=== PATIENT | male | born 1965 | race Caucasian/White ===

== ENCOUNTER 2023-11-19 04:40 | Emergency (ER) | payer SELFPAY ==
[2023-11-19 04:42] VITALS: BP 145/86
--- NOTE | 2023-11-19 05:47 | ED.GENMED ---
History of Present Illness
General
Chief Complaint: Musculo-Skeletal Complaint
Source: patient and ambulance crew
Exam Limitations: none
Time Seen by Provider: 11/19/23 05:34
Nursing documentation reviewed up to this point in time: agreed with
Travel History
Have you had any contact with someone who has COVID-19?: No
Do you have any symptoms of coronavirus? Fever > 100 degrees, chills, cough, shortness of breath, sore throat, loss of taste or smell, muscle aches, or headache?: No
History of Present Illness
History of Present Illness:
This is a 58-year-old gentleman who resides in [place]. He has been traveling back and forth to visit his mother who resides locally. He has history of [id number] diabetes, hypertension, chronic low back pain�narcotic dependent and
follows with pain management in [place]. He also has history of osteoarthritis with previous left knee surgery in the past and more recently has been dealing with intermittent right lateral knee pain after a trip and fall early September. He has
been following with orthopedics and has a prescription for an MRI which she plans to schedule in the near future.
He does admit that his right lateral knee pain worsens with cold weather and worsens with increased activity/ambulation. He has not had a fever nor chills, he has not had swelling of his knee and no recurrent falls nor injury.
He returned to [place] yesterday via air travel and was feeling well throughout the day yesterday but right lateral knee pain returned after he attempted to get up from the dining room table last night around 7 PM.
Right lateral knee pain has persisted throughout the night, is worse with attempted ambulation, worse with movement of his right knee and improves with sitting or lying still. Right lateral knee pain occasionally radiates to his right anterolateral
thigh but he denies increase in his lower back pain and right lateral knee pain is worse with direct palpation of his lateral knee.
He has no history of inflammatory arthropathy such as gout or pseudogout.
He is chronically maintained on oxycodone 15 mg which he takes every 4-6 hours as needed for pain.
Past History
Past History
ED Past Medical History: CAD, HTN, Hypercholesterolemia, IDDM (Patient is now insulin requiring diabetes, maintained on Lantus 15 units at bedtime (11/2023)), NIDDM, AR and Other (Lumbar DJD, chronic low back pain, narcotic dependent)
ED Past Surgical History: Cardiac (PTCA with stent x2 2002, PTCA with stent x 1 in May 2023) and Orthopedic (Lumbar fusion 2013; left knee surgery)
Social History
Tobacco: Non-smoker
Alcohol: Occasional
Personal:
Living: alone (Resides in [place])
Employment: Retired
Family History
Family History: Other (Noncontributory)
Phy Exam
Physical Exam
Physical Exam:
GENERAL: 58-year-old gentleman appears his stated age, awake and alert, pleasant, appears in no acute distress. Easily communicative. Vital signs within normal limits.
EYE: anicteric
NECK: Supple, nontender, no meningismus, no significant adenopathy.
ENT: oral mucosa is moist. No rhinorrhea.
CARDIAC: Regular rate and rhythm. no murmur.
LUNGS: Clear breath sounds bilaterally, no acute respiratory distress, no wheezes/rales/rhonchi
ABDOMEN: Soft, nondistended, without focal tenderness, normoactive BS.
NEUROLOGICAL: Alert and oriented x3, no focal neuro deficits.
SKIN: Warm and dry, normal color, skin intact. No rash.
MUSCULOSKELETAL: No C/C/E. peripheral pulses are full and equal b/l. There is no calf tenderness nor peripheral edema. Right knee has no joint effusion or soft tissue swelling. There is moderate pinpoint tenderness right lateral knee along the
lateral collateral ligament. There is no erythema, no soft tissue swelling, no ecchymosis. Mildly restricted range of motion of right knee related to pain. There is no crepitus. No laxity. No tenderness to the thigh nor lower leg.
PSYCH: Normal and appropriate interaction.
Course
Orders/Labs/Results
Orders:
Orders
11/19/23 05:46
Ketorolac [Toradol] 60 mg IM NOW STA
11/19/23 05:58
Knee Immobilizer Right-Treatme ONCE
11/19/23 06:39
Bedside Glucose- Treatment ONCE
Abnormal Lab Results
11/19/23
06:45
POC Glucose 134 H mg/dl
(70-99)
Vital Signs
Initial and Last Documented VS:
Initial Vital Signs
Temp Pulse Resp BP Pulse Ox
98.0 F 71 16 145/86 97
11/19/23 04:42 11/19/23 04:42 11/19/23 04:42 11/19/23 04:42 11/19/23 04:42
Last Documented Vital Signs
Temp Pulse Resp BP Pulse Ox
98.0 F 71 16 132/83 97
11/19/23 04:42 11/19/23 04:42 11/19/23 04:42 11/19/23 06:00 11/19/23 04:42
MDM/Problems Addressed
Differential Diagnosis Includes:
Patient presents with acute on chronic right lateral knee pain.
Exam remarkable for moderate pinpoint tenderness right lateral knee over lateral collateral ligament.
There is no joint effusion, no soft tissue swelling nor erythema, nothing to suggest inflammatory arthropathy.
He denies recent injury nor fall thus x-ray is not indicated.
Although reports frequent air travel to and from [place] he has had no calf tenderness, no peripheral edema, nothing on exam to suggest DVT and pinpoint lateral knee pain is not consistent with thromboembolism.
He does have history of chronic pain, chronically maintained on opioid medication thus additional narcotics are to be avoided.
Will give a one-time dose of Toradol here to assist with pain control and will plan for knee immobilizer.
He is currently maintained on dual antiplatelet agents, low-dose aspirin as well as Effient therefore ongoing NSAID use is not advisable.
He also has history of insulin requiring diabetes; we could consider short course of prednisone for anti-inflammatory effect but would caution that prednisone will temporarily raise blood sugar.
Ultimately patient will require follow-up with his relocation services specialist in [place]. At this point there is no indication for urgent/emergent MRI of his knee.
Chronic conditions affecting care: DM, CAD and Other (Chronic pain syndrome, narcotic dependent)
*Pulse Oximetry
Patient hypoxic: no
*Critical Care Note
Total Time (30-74mins, 75-104mins- exclusive of procedures): Not Applicable
Update Note
Update Note:
Patient feeling improved after IM dose of Toradol.
Right knee has been placed in a knee immobilizer and he has successfully ambulated to and from the bathroom with steady unaided gait.
Accu-Chek 134.
Will discharge to home with short course of daily prednisone.
Recommend he use the knee immobilizer for comfort may also trial topical lidocaine patch versus topical NSAID gel.
Prompt follow-up with PCP and orthopedist upon returning home to [place].
ED Attending Note
-
Portions of this chart may have been created with voice recognition software.� Occasional wrong word or��sound alike� substitutions may have occurred due to the inherent limitations of voice recognition software.
Discharge Plan
Departure
Patient Disposition: Home (Routine Discharge)
Date of Disposition: 11/19/23
Time of Disposition: 06:47
Patient with high blood pressure during this ER visit?: No
Condition: Good
Discharge Problem:
acute exacerbation of chronic R knee amparo, lat collateral ligament strain R knee
Instructions: Knee Immobilizer (DC), Knee Sprain (DC)
Prescriptions:
New
prednisone 20 mg tablet
40 mg PO DAILY Qty: 10 0RF
No Action
Gabapentin
600 mg PO QID
Lipitor
40 mg PO DAILY
Metoprolol
25 mg PO DAILY
Ramipril
10 mg PO DAILY
aspirin [Ecotrin Low Strength] 81 mg Tablet,Delayed Release (Dr/Ec)
81 mg PO DAILY
sildenafil 100 mg Tablet
100 mg PO DAILY PRN (Reason: ED)
Janumet 50-1,000 mg Tablet
1 tab PO BID
prasugrel 10 mg Tablet
10 mg PO DAILY
dapagliflozin propanediol [Farxiga] 10 mg Tablet
10 mg PO DAILY
oxycodone 15 mg Tablet
15 mg PO Q4-6M PRN (Reason: pain)
Referrals:
PRIVATE,PHYSICIAN [Family Provider] -
Interventions
Interventions:
*Risk Screen - Suicide Last Done: 11/19/23 04:42
*General Assessment Last Done: 11/19/23 04:42
*Neglect/Abuse Screening Last Done: 11/19/23 04:42
ED- Fall Risk Assessment Last Done: 11/19/23 04:42
*ED COVID-19 Vaccine History Last Done: 11/19/23 04:42
ED-Musculoskeletal Assessment Last Done: 11/19/23 05:06
[2023-11-19] MEDS: TORADOL 60 MG IM (05:51)
[2023-11-19 06:00] VITALS: BP 132/83
[2023-11-19 06:46] LABS: Glucose - Point of Care 134 mg/dl (70-99)
== END 2023-11-19 07:05 | disposition home or self-care (01) ==
LOC: EMR 04:40
PROVIDERS: EMERGENCY PHYSICIAN Emergency Medicine
DX: M70.861 Other soft tissue disorders related to use, overuse and pressure, right lower leg (principal); M25.561 Pain in right knee; G89.4 Chronic pain syndrome; I10 Essential (primary) hypertension; I25.10 Atherosclerotic heart disease of native coronary artery without angina pectoris; E11.9 Type 2 diabetes mellitus without complications; F11.20 Opioid dependence, uncomplicated
CPT/HCPCS: 99284; 29505; 96372; 82962